=== PATIENT | male | born 1990 | race Caucasian/White ===

== ENCOUNTER 2016-08-22 08:53 | Day surgery (SDC) | payer OTHER ==
[2016-08-22] MEDS ORDERED: ACETAMINOPHEN 1,000 MG/100 ML 100 ML IV ONE (09:08)
[2016-08-22] MEDS ORDERED: ceFAZolin 2 GM/50 ML 50 ML IV ONE (09:09)
[2016-08-22] MEDS ORDERED: CELECOXIB 100 MG CAPSULE PO ONE (09:09)
[2016-08-22] MEDS ORDERED: LACTATED RINGERS 1,000 ML IV ONE ×3 (09:30→15:45)
[2016-08-22] MEDS ORDERED: BUPIVACAINE 0.5% PF 30 ML VIAL SUBQ ONE ×3 (12:25→12:48)
[2016-08-22] MEDS ORDERED: ROPIVACAINE 0.2% PF 20 ML AMPULE SUBQ ONE ×2 (12:26→12:48)
[2016-08-22] MEDS ORDERED: MORPHINE PF 5 MG/10 ML AMP SUBQ ONE ×2 (12:27→12:48)
[2016-08-22] MEDS ORDERED: ePHEDrine 50 MG/ML AMP IVP ONE (12:40)
[2016-08-22] MEDS ORDERED: DEXAMETHASONE 4 MG/ML VIAL IVP ONE (12:40)
[2016-08-22] MEDS ORDERED: fentaNYL 100 MCG/2 ML VIAL IVP ONE (12:40)
[2016-08-22] MEDS ORDERED: LIDOCAINE-MPF 2% 5 ML VIAL IM ONE (12:40)
[2016-08-22] MEDS ORDERED: PROPOFOL 200 MG/20 ML VIAL IVP ONE (12:40)
[2016-08-22] MEDS ORDERED: ONDANSETRON 4 MG/2 ML VIAL IVP ONE (12:40)
[2016-08-22] MEDS ORDERED: MIDAZOLAM 2 MG/2 ML VIAL IVP ONE (12:40)
[2016-08-22] MEDS ORDERED: EPINEPHrine 1 MG/ML AMP IVP ONE (13:07)
[2016-08-22] MEDS: fentaNYL 100 MCG/2 ML VIAL ONE ×2 (13:38→13:44)
[2016-08-22] MEDS ORDERED: HYDROmorphone 1 MG/ML SYRINGE ONE (13:43)
[2016-08-22 18:42] VITALS: BP 134/95
--- NOTE | 2016-08-23 06:26 | OPERATIVE REPORT ---
DATE OF SURGERY: 08/22/2016 00:00:00 IDENTIFICATION NUMBER: [id number]. PREOPERATIVE DIAGNOSIS: Left knee medial meniscus tear. OPERATIVE DIAGNOSES 1. Left knee medial meniscus tear. 2. 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 4. Left lateral tibial plateau chondromalacia. 5. Plicated impingement. OPERATIVE PROCEDURES PERFORMED: Left knee arthroscopy with medial meniscus debridement, lateral tibial plateau and trochlea chondroplasty and plica, and adhesion excision. OPERATIVE SURGEON: Commander Shelton Wolfe, [employer] SCHOOL PROGRAM DIRECTOR SURGEON: Lieutenant Commander Charu Kingston, [employer], [employer]. ANESTHESIA PROVIDER: Domo Camara CRNA. ANESTHESIA TECHNIQUE: General. ANESTHESIA: LMA with local at the incision site. CIRCULATING REGISTERED NURSES 1. Rita Johnson. 2. Franklyn Castillo RN. PACKING AND SHIPPING CLERK: Cleo Dumont. START TIME: 1220. STOP TIME: 1320. INJECTED SUBSTANCES: Includes Marcaine 0.5% plain injected at the incision site. Additional injected substances includes ropivacaine 0.2% with Duramorph morphine injected intra-articularly after closure of portal sites for postoperative pain control. INTRAVENOUS FLUIDS: 1300 mL of lactated Ringer's. PREOPERATIVE ANTIBIOTICS: Ancef 2 grams. ESTIMATED BLOOD LOSS: 5 mL. PREOPERATIVE PREP: Hibiclens followed by ChloraPrep applied to the exposed operative skin after draping. The patient had a MARY hose and foot pump to the right lower extremity. They were in place and functioning prior to induction of anesthesia. COMPLICATIONS: None. FINAL COUNTS: Correct. 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 He was counseled as far as the findings and options for operative versus nonoperative management, including the risks, benefits, alternatives and expectations to both operative and nonoperative management. He preferred to have surgery, received command authorization for surgery. On the day of surgery, identified the operative site to be his left knee, was initialed by the operative surgeon. He underwent removal of hair with clippers. He was then taken back to the operating room, placed in supine position and underwent general anesthesia via LMA. After adequate anesthetic control, the patient's bony prominences were well-padded to ensure his head, neck, and groin were all safe and well-padded. He had a tourniquet placed to the left upper thigh, underwent examination under anesthesia revealing full passive range of motion, stable anterior and posterior drawer, stable Bhargav's, negative pivot shift and glide, stable varus and valgus stress at 0 and 30 degrees. Following this, the patient underwent Hibiclens prep and standard sterile draping, followed by surgical pause to confirm the proper patient, procedure, operative site, position, prophylactic antibiotics, surgical initials, and surgical instrumentation in accordance with universal protocol procedure verification. Following this, ChloraPrep was applied to the exposed operative skin, allowed to dry for 3 minutes. His bony landmarks were then outlined with a skin marker. Surgery began with injection into the portal sites with 0.5% Marcaine plain followed by a stab incision over the anterolateral knee. The insertion of the arthroscope into the medial compartment under direct visualization, a spinal needle was inserted to establish location of the anteromedial portal, followed by a stab incision. A probe was then inserted. Probing the medial meniscus revealed a posterior medial meniscus tear along with signs of medial aspect of the medial tibial plateau chondral thinning. The knee was taken through a full range of motion. There were no signs of medial femoral condyle chondromalacia. The ligamentum had to be removed in order to enter the femoral notch. Probing and visualization of the ACL showed no signs of tear or ACL insufficiency. The lateral compartment was entered under a figure 4 position. The lateral meniscus was probed and visualized. There were no signs of tear or instability. There was an area of lateral tibial plateau chondromalacia and chondral flap on the more medial aspect of the lateral tibial plateau. This underwent chondroplasty back to a stable rim. Following this, the patellofemoral articulation was entered, revealing a medial plica band, as well as an adhesive band more posterior to that. This underwent lysis of adhesions and resection of the medial plica. Evaluation of the patellofemoral articulation revealed a small area of trochlear chondromalacia, then underwent chondroplasty. The patellar chondral surface appeared normal, as did the patellofemoral tracking. Attention was then focused back to the medial compartment, where the medial meniscus debridement back to a stable rim was performed. The instruments were then removed from the patient's knee. The fluid was allowed to extravasate out. In order to perform the medial meniscus debridement to the more posterior and posterolateral aspect of the base of the flap tear, an additional medial portal had to be made. The incisions were then closed with 3-0 Monocryl. The knee was then injected with ropivacaine and Duramorph. The wounds were then covered with Mastisol, Steri-Strips, Xeroform, sterile plain gauze, sterile Webril, and Roman bandage from mid foot to mid thigh. The arthroscopic photos were taken throughout the case. The patient was then extubated in the operating room, taken to the recovery room in a stable condition and tolerated the procedure well. The patient's mother was then notified via telephone of the intraoperative findings, procedures performed and postop instructions. The patient does have a copy of my cell phone number in case he needs to contact me after hours. This patient may be a candidate for meniscus transplant in the future. He appears to have a normal mechanical axis, and mechanical axis x-rays revealed normal alignment at the knee. Edited and electronically signed: CDR Shelton Wolfe [employer], [employer] [id number] JOB #: [id number] EXT JOB #:[id number] KENNETH
== END 2016-08-22 08:54 | disposition home or self-care (01) ==
LOC: SDS 08:53
PROVIDERS: ATTEND Orthopaedic Surgery
PROC: 0SBD4ZZ Excision of Left Knee Joint, Percutaneous Endoscopic Approach (ICD-10-PCS; principal; 2016-08-22 11:00)
DX: S83.242A Other tear of medial meniscus, current injury, left knee, initial encounter (principal); M94.262 Chondromalacia, left knee; M25.862 Other specified joint disorders, left knee; F17.290 Nicotine dependence, other tobacco product, uncomplicated
CPT/HCPCS: 29881; A9270; J0131; J0690; J1170; J7120